=== PATIENT | male | born 1945 | race Caucasian/White ===

== ENCOUNTER 2023-06-02 17:55 | Inpatient (IN) | payer BC ==
[~2023-06-02] VITALS: Ht 177.8 cm; Wt 81.6 kg
[2023-06-02 18:00] VITALS: BP_SYST 118; PULSE 106; RESP 18; TEMP 98.4; O2SAT 90
[2023-06-02] MEDS ORDERED: ASPIRIN 81 MG TAB.CHEW PO ONE (19:30)
[2023-06-02 19:43] LABS: BASOPHILS % (AUTO) 0.3 % (0.0-2.0); EOSINOPHILS # (AUTO) 0.1 K/uL (0.0-0.4); EOSINOPHILS % (AUTO) 1.3 % (0.0-4.0); HEMATOCRIT 33.7 % (36-54); LYMPHOCYTES % (AUTO) 9.3 % (20.5-51.5); MEAN CORPUSCULAR HEMOGLOBIN 30 pg (27-31); MEAN CORPUSCULAR HGB CONC 33 % (32-36); MEAN CORPUSCULAR VOLUME 91 fL (79.0-98.0); MONOCYTES # (AUTO) 0.9 K/uL (0.0-1.0); MONOCYTES % (AUTO) 8.2 % (1.7-9.3); NEUTROPHILS # (AUTO) 8.7 K/uL (1.8-7.7); NEUTROPHILS % (AUTO) 80.9 % (40.0-70.0); PLATELET COUNT (AUTO) 196 K/uL (130-430); RED BLOOD CELL COUNT(AUTO) 3.72 MIL/uL (4.2-6.2); RED CELL DISTRIBUTION WIDTH 14.6 % (9.0-15.0); WHITE BLOOD COUNT (AUTO) 10.7 K/uL (4.8-10.8)
[2023-06-02 20:04] LABS: ALANINE AMINOTRANSFERASE 13 U/L (12-78); ALBUMIN 3.4 g/dL (3.4-4.8); ANION GAP 9 (5-15); ASPARTATE AMINOTRANSFERASE 10 U/L (10-37); CALCIUM 8.8 mg/dL (8.4-11.0); CARBON DIOXIDE 24 mmol/L (23-29); CHLORIDE 102 mmol/L (98-107); CREATININE 1.86 mg/dL (0.55-1.30); GLUCOSE 240 mg/dL (74-106); PHOSPHORUS 2.7 mg/dL (2.7-4.5); POTASSIUM 4.8 mmol/L (3.5-5.1); SODIUM SERUM 135 mmol/L (136-145); TOTAL BILIRUBIN 0.2 mg/dL (0.0-1.0); TOTAL PROTEIN, SERUM 6.8 g/dL (6.4-8.3); UREA NITROGEN, BLOOD 36 mg/dL (8-21)
[2023-06-02] MEDS ORDERED: NS 500 ML IV ONE (22:00)
[2023-06-02] MEDS ORDERED: D5NS 1,000 ML IV ONE (22:30)
[2023-06-02] MEDS ORDERED: ACETAMINOPHEN 325 MG TABLET PO ONE (23:45)
[2023-06-03] MEDS ORDERED: TAMS0.4C96 PO (01:08)
[2023-06-03] MEDS ORDERED: GABA300T25 (01:08)
[2023-06-03] MEDS ORDERED: FURO20TA4 PO (01:08)
[2023-06-03] MEDS ORDERED: METF-381 PO (01:08)
[2023-06-03] MEDS ORDERED: MEMA10TA56 PO (01:08)
[2023-06-03] MEDS ORDERED: HYDR-3927 PO (01:08)
[2023-06-03] MEDS ORDERED: TOPI100T39 PO (01:08)
[2023-06-03] MEDS ORDERED: TOPI-255 PO (01:08)
[2023-06-03] MEDS ORDERED: NITR1PAT28 TD (01:08)
[2023-06-03] MEDS ORDERED: VITD400 PO (01:08)
[2023-06-03] MEDS ORDERED: GLIM4TAB PO (01:10)
[2023-06-03] MEDS ORDERED: CLOP75TA32 PO (01:16)
[2023-06-03] MEDS ORDERED: NITR0.4T47 SL (01:16)
[2023-06-03] MEDS ORDERED: ASPI-1155 PO (01:16)
[2023-06-03] MEDS ORDERED: WELSR150 PO (01:16)
[2023-06-03] MEDS ORDERED: FINA5TAB3 PO (01:16)
[2023-06-03] MEDS ORDERED: ROSU40TA PO (01:16)
[2023-06-03] MEDS ORDERED: ONDANSETRON HCL 4 MG/2 ML VIAL IVP PRN (10:45)
[2023-06-03] MEDS ORDERED: ACETAMINOPHEN 325 MG TABLET PO PRN ×2 (10:45→11:15)
[2023-06-03] MEDS ORDERED: LORazepam 2 MG/ML VIAL IVP PRN (10:45)
[2023-06-03 12:00] VITALS: BP_SYST 121; PULSE 77; RESP 18; TEMP 98; O2SAT 99
[2023-06-03 12:04] VITALS: BP_SYST 146; PULSE 80; RESP 18; TEMP 98.2
[2023-06-03] MEDS ORDERED: HYDROcodone/ACETAMIN 10-325 MG TAB PO PRN (13:00)
[2023-06-03] MEDS ORDERED: NALOXONE HCL 0.4 MG/ML AMP (NARCAN) IVP PRN (13:00)
[2023-06-03 16:00] VITALS: BP_SYST 147; PULSE 77; RESP 18; TEMP 97.8; O2SAT 100
[2023-06-03 20:00] VITALS: BP_SYST 149; PULSE 83; RESP 18; TEMP 98.8; O2SAT 98
[2023-06-03] MEDS: MEMANTINE HCL 5 MG TABLET PO SCH (20:09)
[2023-06-03] MEDS: INSULIN REGULAR, HUMAN 100 UNITS/ML, 3 ML VIAL (humuLIN R) SUBCUT PRN (20:09)
[2023-06-03] MEDS ORDERED: TOPIRAMATE 100 MG TABLET(Topamax) PO SCH (21:00)
[2023-06-03] MEDS ORDERED: ATORVASTATIN 20 MG TABLET PO SCH (21:00)
[2023-06-04] VITALS: BP_SYST 144; PULSE 75; RESP 18; TEMP 98.2; O2SAT 95
[2023-06-04] MEDS: INSULIN REGULAR, HUMAN 100 UNITS/ML, 3 ML VIAL (humuLIN R) SUBCUT PRN (05:49)
[2023-06-04 06:50] LABS: BASOPHILS % (AUTO) 0.4 % (0.0-2.0); EOSINOPHILS # (AUTO) 0.4 K/uL (0.0-0.4); EOSINOPHILS % (AUTO) 4.7 % (0.0-4.0); HEMATOCRIT 37.6 % (36-54); HEMOGLOBIN 11.9 g/dL (14.0-18.0); MEAN CORPUSCULAR HEMOGLOBIN 29 pg (27-31); MEAN CORPUSCULAR HGB CONC 32 % (32-36); MEAN CORPUSCULAR VOLUME 92 fL (79.0-98.0); MONOCYTES # (AUTO) 0.8 K/uL (0.0-1.0); NEUTROPHILS # (AUTO) 5.4 K/uL (1.8-7.7); NEUTROPHILS % (AUTO) 62.9 % (40.0-70.0); PLATELET COUNT (AUTO) 217 K/uL (130-430); RED BLOOD CELL COUNT(AUTO) 4.11 MIL/uL (4.2-6.2); RED CELL DISTRIBUTION WIDTH 14.5 % (9.0-15.0); WHITE BLOOD COUNT (AUTO) 8.6 K/uL (4.8-10.8)
[2023-06-04 07:27] LABS: ALANINE AMINOTRANSFERASE 15 U/L (12-78); ANION GAP 9 (5-15); ASPARTATE AMINOTRANSFERASE 15 U/L (10-37); CALCIUM 8.8 mg/dL (8.4-11.0); CARBON DIOXIDE 26 mmol/L (23-29); CHLORIDE 107 mmol/L (98-107); CREATININE 1.58 mg/dL (0.55-1.30); GLUCOSE 181 mg/dL (74-106); PHOSPHORUS 3.6 mg/dL (2.7-4.5); POTASSIUM 3.9 mmol/L (3.5-5.1); SODIUM SERUM 142 mmol/L (136-145); TOTAL BILIRUBIN 0.3 mg/dL (0.0-1.0); TOTAL PROTEIN, SERUM 6.7 g/dL (6.4-8.3); UREA NITROGEN, BLOOD 23 mg/dL (8-21)
[2023-06-04 08:00] VITALS: BP_SYST 140; PULSE 79; RESP 16; TEMP 98.4; O2SAT 96; O2SAT 97
[2023-06-04] MEDS ORDERED: GLIMEPIRIDE 2 MG TABLET PO SCH (08:00)
[2023-06-04] MEDS ORDERED: TAMSULOSIN HCL 0.4 MG CAP PO SCH (09:00)
[2023-06-04] MEDS ORDERED: CLOPIDOGREL BISULFATE 75 MG TABLET PO SCH (09:00)
[2023-06-04] MEDS ORDERED: CHOLECALCIFEROL (VITAMIN D3) 2,000 UNIT TABLET PO SCH (09:00)
[2023-06-04] MEDS ORDERED: buPROPion HCL 150 MG TABLET.SA PO SCH (09:00)
[2023-06-04] MEDS ORDERED: GABAPENTIN 300 MG CAPSULE PO SCH (09:00)
[2023-06-04] MEDS ORDERED: TOPIRAMATE 25 MG TABLET(TOPAMAX) PO SCH (09:00)
[2023-06-04] MEDS ORDERED: FUROSEMIDE 20 MG TABLET PO SCH (09:00)
[2023-06-04] MEDS ORDERED: FINASTERIDE 5 MG TABLET (PROSCAR) PO SCH (09:00)
[2023-06-04] MEDS ORDERED: ASPIRIN 81 MG TAB.CHEW PO SCH (09:00)
[2023-06-04] MEDS ORDERED: NITROGLYCERIN 0.6 MG/HR PATCH.TD24 TD SCH (09:00)
[2023-06-04] MEDS: MEMANTINE HCL 5 MG TABLET PO SCH (09:09)
[2023-06-04 12:00] VITALS: BP_SYST 111; PULSE 84; RESP 18; TEMP 97.5; O2SAT 98
[2023-06-04 16:00] VITALS: BP_SYST 114; PULSE 73; RESP 18; TEMP 97.3; O2SAT 97
[2023-06-04 19:36] VITALS: BP_SYST 114; PULSE 73; RESP 18; TEMP 97.3; O2SAT 97
[2023-06-05 08:06] LABS: CREATININE, URINE 47.8 mg/dL (Not Estab.); MICROALBUMIN URINE RANDOM 11.5 ug/mL (Not Estab.)
== END 2023-06-04 18:20 | disposition home or self-care (01) | DRG 684 ==
LOC: SED 17:55 → STU 22:35 → SMU 06-04 09:18
PROVIDERS: ADMIT Preventive Medicine Preventive Medicine/Occupational Environmental Medicine; ATTEND Preventive Medicine Preventive Medicine/Occupational Environmental Medicine
DX: N17.9 Acute kidney failure, unspecified (principal); E88.09 Other disorders of plasma-protein metabolism, not elsewhere classified; E11.65 Type 2 diabetes mellitus with hyperglycemia; I25.10 Atherosclerotic heart disease of native coronary artery without angina pectoris; E11.21 Type 2 diabetes mellitus with diabetic nephropathy; N40.0 Benign prostatic hyperplasia without lower urinary tract symptoms; E78.5 Hyperlipidemia, unspecified; G20 Parkinson's disease; F02.80 Dementia in other diseases classified elsewhere, unspecified severity, without behavioral disturbance, psychotic disturbance, mood disturbance, and anxiety; J44.9 Chronic obstructive pulmonary disease, unspecified; Z88.1 Allergy status to other antibiotic agents; Z88.0 Allergy status to penicillin; Z88.8 Allergy status to other drugs, medicaments and biological substances; I25.2 Old myocardial infarction; R06.89 Other abnormalities of breathing
CPT/HCPCS: 36415; 70450-TC; 71045; 76376; 76770; 80053; 82043; 82570; 82962; 83735; 83874; 84100; 84302; 84484; 84560; 85025; 85379; 85610-TC; 85730-TC; 93005; 97116-GP; 97163-GP; 97530-GP; 99285; G0378

== ENCOUNTER 2023-08-13 17:59 | Inpatient (IN) | payer BC ==
[~2023-08-13] VITALS: Ht 180.3 cm; Wt 87.5 kg
[~2023-08-13 17:59] MED LIST: ASPI-1155 PO; CLOP75TA32 PO; FINA-37 PO; FURO20TA4 PO; GABA300T25; GLIM4TAB PO; HYDR-3927 PO; MEMA10TA56 PO; METF-381 PO; NITR0.4T47 SL; NITR1PAT28 TD; ROSU40TA PO; TAMS0.4C96 PO; TOPI-255 PO; TOPI100T39 PO; VITD400 PO; WELSR150 PO
[2023-08-13] MEDS ORDERED: FINA-37 PO (18:12)
[2023-08-13] MEDS ORDERED: TOPI50TA PO (18:12)
[2023-08-13] MEDS ORDERED: TAMS-11 PO (18:12)
[2023-08-13] MEDS ORDERED: METF1000 PO (18:12)
[2023-08-13] MEDS ORDERED: GLIM4TAB PO (18:12)
[2023-08-13] MEDS ORDERED: MEMA10TA PO (18:12)
[2023-08-13] MEDS ORDERED: GABA-531 PO (18:12)
[2023-08-13] MEDS ORDERED: FURO-150 PO (18:12)
[2023-08-13] MEDS ORDERED: FLUT1BLS5 INH (18:12)
[2023-08-13] MEDS ORDERED: CALC-22 PO (18:12)
[2023-08-13] MEDS ORDERED: PRO40 PO (18:12)
[2023-08-13 18:13] VITALS: BP_SYST 88; PULSE 78; RESP 16; TEMP 97; O2SAT 97
[2023-08-13] MEDS ORDERED: NS 500 ML IV ONE (18:30)
[2023-08-13 19:11] LABS: BASOPHILS % (AUTO) 0.2 % (0.0-2.0); EOSINOPHILS # (AUTO) 0.2 K/uL (0.0-0.4); EOSINOPHILS % (AUTO) 3.3 % (0.0-4.0); HEMATOCRIT 34.5 % (36-54); LYMPHOCYTES # (AUTO) 1.5 K/uL (1.0-5.5); LYMPHOCYTES % (AUTO) 19.9 % (20.5-51.5); MEAN CORPUSCULAR HEMOGLOBIN 30 pg (27-31); MEAN CORPUSCULAR HGB CONC 32 % (32-36); MEAN CORPUSCULAR VOLUME 93 fL (79.0-98.0); MONOCYTES # (AUTO) 0.5 K/uL (0.0-1.0); MONOCYTES % (AUTO) 6.5 % (1.7-9.3); NEUTROPHILS # (AUTO) 5.1 K/uL (1.8-7.7); NEUTROPHILS % (AUTO) 70.1 % (40.0-70.0); PLATELET COUNT (AUTO) 161 K/uL (130-430); RED BLOOD CELL COUNT(AUTO) 3.71 MIL/uL (4.2-6.2); RED CELL DISTRIBUTION WIDTH 15.2 % (9.0-15.0); WHITE BLOOD COUNT (AUTO) 7.3 K/uL (4.8-10.8)
[2023-08-13 19:15] LABS: ALANINE AMINOTRANSFERASE 21 U/L (12-78); ALBUMIN 3.3 g/dL (3.4-4.8); ANION GAP 11 (5-15); ASPARTATE AMINOTRANSFERASE 11 U/L (10-37); CALCIUM 8.5 mg/dL (8.4-11.0); CARBON DIOXIDE 21 mmol/L (23-29); CHLORIDE 103 mmol/L (98-107); CREATININE 1.91 mg/dL (0.55-1.30); GLUCOSE 213 mg/dL (74-106); INR 1.1 (0.80-1.20); POTASSIUM 4.5 mmol/L (3.5-5.1); PROTHROMBIN TIME 10.9 SECS (9.5-12.5); SODIUM SERUM 135 mmol/L (136-145); TOTAL BILIRUBIN 0.1 mg/dL (0.0-1.0); TOTAL PROTEIN, SERUM 6.4 g/dL (6.4-8.3); UREA NITROGEN, BLOOD 28 mg/dL (8-21)
[2023-08-13] MEDS ORDERED: ONDANSETRON HCL 4 MG/2 ML VIAL IVP PRN (19:45)
[2023-08-13] MEDS ORDERED: ACETAMINOPHEN 325 MG TABLET PO PRN ×2 (19:45→20:00)
[2023-08-13] MEDS ORDERED: NITROGLYCERIN 1 INCH (GM) OINT. TP ONE (20:00)
[2023-08-13] MEDS ORDERED: ASPIRIN 81 MG TABLET(ECOTRIN) PO ONE (20:00)
[2023-08-13] MEDS: NACL 0.9% 1,000 ML IV SCH (20:08)
[2023-08-13 22:30] VITALS: BP_SYST 147; PULSE 71; RESP 17; TEMP 97.8; O2SAT 98
[2023-08-14] VITALS (7 sets, daily range): BP systolic 139–169; PULSE 60–90; RESP 18; TEMP 98; O2SAT 99
[2023-08-14] MEDS: NACL 0.9% 1,000 ML IV SCH ×2 (05:01→16:29)
[2023-08-14 06:07] LABS: BASOPHILS % (AUTO) 0.7 % (0.0-2.0); EOSINOPHILS # (AUTO) 0.3 K/uL (0.0-0.4); EOSINOPHILS % (AUTO) 7.9 % (0.0-4.0); HEMATOCRIT 36.4 % (36-54); HEMOGLOBIN 11.7 g/dL (14.0-18.0); LYMPHOCYTES # (AUTO) 1.7 K/uL (1.0-5.5); LYMPHOCYTES % (AUTO) 37.5 % (20.5-51.5); MEAN CORPUSCULAR HEMOGLOBIN 30 pg (27-31); MEAN CORPUSCULAR HGB CONC 32 % (32-36); MEAN CORPUSCULAR VOLUME 93 fL (79.0-98.0); MONOCYTES # (AUTO) 0.4 K/uL (0.0-1.0); NEUTROPHILS # (AUTO) 1.9 K/uL (1.8-7.7); NEUTROPHILS % (AUTO) 43.9 % (40.0-70.0); PLATELET COUNT (AUTO) 149 K/uL (130-430); RED BLOOD CELL COUNT(AUTO) 3.93 MIL/uL (4.2-6.2); RED CELL DISTRIBUTION WIDTH 15.3 % (9.0-15.0); WHITE BLOOD COUNT (AUTO) 4.4 K/uL (4.8-10.8)
[2023-08-14 06:29] LABS: ALANINE AMINOTRANSFERASE 16 U/L (12-78); ALBUMIN 3.1 g/dL (3.4-4.8); ANION GAP 8 (5-15); ASPARTATE AMINOTRANSFERASE 9 U/L (10-37); CALCIUM 8.6 mg/dL (8.4-11.0); CARBON DIOXIDE 26 mmol/L (23-29); CHLORIDE 109 mmol/L (98-107); CREATININE 1.63 mg/dL (0.55-1.30); GLUCOSE 112 mg/dL (74-106); PHOSPHORUS 3.7 mg/dL (2.7-4.5); POTASSIUM 3.7 mmol/L (3.5-5.1); SODIUM SERUM 143 mmol/L (136-145); TOTAL BILIRUBIN 0.2 mg/dL (0.0-1.0); TOTAL PROTEIN, SERUM 6.3 g/dL (6.4-8.3); UREA NITROGEN, BLOOD 22 mg/dL (8-21)
[2023-08-14] MEDS ORDERED: buPROPion HCL 150 MG TABLET.SA PO SCH (09:00)
[2023-08-14] MEDS ORDERED: ROSUVASTATIN CALCIUM 5 MG/TAB (CRESTOR) PO SCH (09:00)
[2023-08-14] MEDS ORDERED: ATORVASTATIN 20 MG TABLET PO SCH (09:00)
[2023-08-14] MEDS ORDERED: ASPIRIN 81 MG TAB.CHEW PO SCH (09:00)
[2023-08-14] MEDS ORDERED: MEMANTINE HCL 5 MG TABLET PO SCH (09:00)
[2023-08-14] MEDS ORDERED: INSULIN LISPRO SLIDING SCALE 100 UNITS/ML, 3 ML VIAL (humaLOG) SUBCUT PRN (11:30)
[2023-08-14] MEDS ORDERED: DEXTROSE 50% JECT 50 ML DISP.SYRIN IVP PRN (11:30)
[2023-08-14] MEDS ORDERED: D5W 1,000 ML IV PRN (11:30)
[2023-08-14] MEDS ORDERED: GLUCOSE (DEXTROSE) ORAL GEL -Adults PO PRN (11:30)
[2023-08-14 12:51] LABS: BILIRUBIN,URINE NEGATIVE (NEGATIVE); BLOOD, URINE NEGATIVE (NEGATIVE); CLARITY/URINE CLEAR (CLEAR); GLUCOSE,URINE 1+ (NEGATIVE); KETONES,URINE NEGATIVE (NEGATIVE); LEUKOCYTE ESTERASE ,URINE NEGATIVE (NEGATIVE); NITRITE, URINE NEGATIVE (NEGATIVE); PROTEIN URINE NEGATIVE (NEGATIVE); UROBILINOGEN,URINE 0.2 (0.2-1.0)
[2023-08-14 12:52] LABS: COLOR,URINE STRAW (YELLOW)
[2023-08-14] MEDS ORDERED: INSU100V9 SQ (16:51)
== END 2023-08-14 19:30 | disposition home or self-care (01) | DRG 641 ==
LOC: SED 17:59 → STU 19:45
PROVIDERS: ADMIT Family Medicine; ATTEND Family Medicine
DX: E86.0 Dehydration (principal); N17.9 Acute kidney failure, unspecified; E44.1 Mild protein-calorie malnutrition; E87.1 Hypo-osmolality and hyponatremia; I25.10 Atherosclerotic heart disease of native coronary artery without angina pectoris; E78.5 Hyperlipidemia, unspecified; M79.7 Fibromyalgia; J44.9 Chronic obstructive pulmonary disease, unspecified; E11.22 Type 2 diabetes mellitus with diabetic chronic kidney disease; I12.9 Hypertensive chronic kidney disease with stage 1 through stage 4 chronic kidney disease, or unspecified chronic kidney disease; N18.30 Chronic kidney disease, stage 3 unspecified; N40.0 Benign prostatic hyperplasia without lower urinary tract symptoms; E55.9 Vitamin D deficiency, unspecified; I95.1 Orthostatic hypotension; Z88.1 Allergy status to other antibiotic agents; Z88.0 Allergy status to penicillin; Z88.8 Allergy status to other drugs, medicaments and biological substances; Z79.899 Other long term (current) drug therapy; Z79.82 Long term (current) use of aspirin; Z68.26 Body mass index [BMI] 26.0-26.9, adult
CPT/HCPCS: 36415; 71045; 76770; 80053; 81001; 81003; 82570; 82962; 83037; 83735; 83880; 84100; 84302; 84484; 85025; 85610-TC; 85730-TC; 93306; 96360; 96361; 97116-GP; 97530-GP; 99285; G0378